=== PATIENT | female | born 1990 | race Caucasian/White ===

== ENCOUNTER 2017-01-29 08:44 | Emergency (ER) | payer MEDICAID, OTHER ==
[2017-01-29 08:55] VITALS: BMI 32.5
[2017-01-29 08:56] VITALS: TEMP 98.2; O2SAT 99
[2017-01-29] MEDS ORDERED: Albuterol-Ipratrop 3 mg / 0.5 (3 ml) UD ONE (09:41)
[2017-01-29] MEDS ORDERED: Albuterol-Ipratrop 3 mg / 0.5 (3 ml) UD IH SCH (09:45)
[2017-01-29 10:08] VITALS: BP 102/65; PULSE 105; RESP 18
--- NOTE | 2017-01-29 11:11 | C.PDOC ---
History Of Present Illness 26 yr old female who is 35 weeks with PMHx of asthma, presents to the ER stating last night she had 2 episodes of coughing and difficulty breathing. Patient states after the first episode she had a treatment of Albuterol and felt better but after the second episode she started having crampy abdominal pain and had some pink discharge. Patient denies fever, chest pain, nausea, vomiting, diarrhea, weakness or numbness. Time Seen by Provider: 01/29/17 09:12 Chief Complaint (Nursing): Cough, Cold, Congestion History Per: Patient History/Exam Limitations: no limitations Onset/Duration Of Symptoms: Sudden Onset (Last night) Past Medical History Reviewed: Historical Data, Nursing Documentation, Vital Signs Vital Signs: Last Vital Signs Temp 98.2 F 01/29/17 08:55 Pulse 105 H 01/29/17 10:00 Resp 18 01/29/17 10:00 BP 102/65 01/29/17 10:00 Pulse Ox 99 01/29/17 11:16 - Medical History PMH: Anemia, Asthma Family History: States: No Known Family Hx - Social History Hx Tobacco Use: No Hx Alcohol Use: No Hx Substance Use: No - Immunization History Hx Influenza Vaccination: Yes (2014) Hx Pneumococcal Vaccination: Yes Review Of Systems Except As Marked, All Systems Reviewed And Found Negative. Constitutional: Negative for: Fever Cardiovascular: Negative for: Chest Pain Gastrointestinal: Positive for: Abdominal Pain. Negative for: Nausea, Vomiting , Diarrhea Genitourinary: Positive for: Vaginal Discharge ([place]) Neurological: Negative for: Weakness, Numbness Physical Exam - Physical Exam Appears: Non-toxic, No Acute Distress Skin: Normal Color, Warm, Dry, No Rash Head: Atraumatic, Normacephalic Oral Mucosa: Moist Chest: Symmetrical, No Tenderness Cardiovascular: Rhythm Regular, No Murmur Respiratory: Normal Breath Sounds, No Rales, No Rhonchi, No Wheezing Gastrointestinal/Abdominal: Soft, No Tenderness, No Guarding, No Rebound Back: Other (gravid uterus palp at xyphoid) Extremity: Normal ROM, No Swelling Neurological/Psych: Oriented x3, Normal Speech, Normal Motor ED Course And Treatment O2 Sat by Pulse Oximetry: 99 Medical Decision Making Medical Decision Making: PLAN: Discussed with pt Alb nebs in the ED observation if breathing OK then tx to ob for evaluation Post neb tx pt eloped Disposition - Disposition Disposition: ELOPEMENT - ER ONLY Disposition Time: 00:00 Condition: UNKNOWN - Clinical Impression Clinical Impression: Asthma, - Scribe Statement The provider has reviewed the documentation as recorded by the Kerryibe Evangelina Davis Provider Attestation: All medical record entries made by the Kerryibsravani were at my direction and personally dictated by me. I have reviewed the chart and agree that the record accurately reflects my personal performance of the history, physical exam, medical decision making, and the department course for this patient. I have also personally directed, reviewed, and agree with the discharge instructions and disposition.
--- NOTE | 2017-02-10 12:22 | CARD ---
APPROVED REPORT EKG Measurement Heart [id number] IL [id number] [id number] <Conclusion> Sinus tachycardia Otherwise normal ECG
== END 2017-01-29 10:00 | disposition left against medical advice (07) ==
LOC: C.ER 08:44 → SUPCPDRO 08:44 → C.ER 10:00
DX: O26.893 Other specified pregnancy related conditions, third trimester (principal); J45.909 Unspecified asthma, uncomplicated; Z3A.35 35 weeks gestation of pregnancy

== ENCOUNTER 2017-02-23 07:09 | Inpatient (IN) | payer OTHER ==
[2017-03-04 05:01] VITALS: BMI 40.7
--- NOTE | 2017-03-04 06:58 | OBADHP ---
Datetime: 03/04/2017 06:52 Admit Comment, IP Provider: chief complaint-term , induction of labor HPI 26 y/o at 39.4 wga here for scheduled induction oif labor.patient denies nausea, vomiting , headachge, chest pain, shortness of breath, numbness or tingling in hands and feet course complicated by anemia; hx of lupus but not on meds PMH lupus.was on plaquanil until she found out she is , asthma, obesity PSH denies OBGYN HX ; NVDX1; Hx of ascus pap Social hx denies tobacco,alcohol or illicit drug use Exam see exam section A/P 26 y/o at 39.4 wg ahere for inbduction of labor due to lupus -admit -see orders Pelvic Type - PN: Adequate Extremities - PN: Normal Abdomen - PN: Normal Back - PN: Normal Lungs - PN: Normal Heart - PN: Normal Neurologic - PN: Normal General - PN: Normal Weight - Estimated: 3200 Presentation-Admit: Vertex Contraction Comments Provider: occ Gestation - Est Wks by US: 39.4 IP Hx Assessment: The History has been Reviewed and is Current Vital Signs Provider: Reviewed; Within Normal Limits IP Chief Complaint: Scheduled induction of labor FHR Category Provider Fetus A: Category I Dilatation, Provider: 1 Effacement, Provider: 70 Station, Provider: -2 Genitourinary Exam: Normal DTRs - PN: Normal EGA AdmitDate IP: 39.4 IP Adm Impression: Term, intrauterine ; No Active Labor IP Admit Plan: Admit to unit
[2017-03-04] MEDS ORDERED: Lactated Ringer's 1,000 ML IV SCH (07:30)
--- NOTE | 2017-03-04 07:39 | OBPN ---
Datetime: 03/04/2017 07:32 Contraction Comments Provider: irregular FHR - Baseline A Provider: 130 Gestation - Est Wks by US: 39.0 Weight - Estimated: 3200 Presentation-Admit: Vertex IP Progress Note Comment: Elsin received in LDR#2 - (+) abdominal "cramps" pain scale 3/10 to 4/10 ; also c/o low back pain. (+) AFM. V.E: as above. Assessment: 26 yo P1011, 39 weeks, referred for IOL for lupus; severe anemia. Cervical exam as abo ve. Category 1 tracing. Discussed with patient cervical ripening followed by pitocin. Patient also co unseled re: pain management; receptive to epidural. GBS (-). Clinically stable. Plan: 1) Cytotec p.o. x 1 2) Possible pitocin 3) Possible epidural 4) Anticipate vaginal delivery NICHD Accel Fetus A IP Provider: 15X15 FHR Category Provider Fetus A: Category I NICHD Variability Prov Fetus A: Moderate 6-25bpm Dilatation, Provider: 3 Effacement, Provider: 50 Station, Provider: -3 NICHD Decel Fetus A IP Provider: None Datetime: 03/04/2017 06:52 Vital Signs Provider: Reviewed; Within Normal Limits
[2017-03-04 08:53] LABS: BASO % 0.4 % (0.0-2.0); EOS # 0.1 K/uL (0.0-0.7); EOS % 1.2 % (0.0-4.0); HEMATOCRIT 25.2 % (34.0-47.0); LYMPH # 1.6 K/uL (1.0-4.3); LYMPH % 19.5 % (20.0-40.0); MEAN CELL VOLUME 62.2 fL (81.0-99.0); MEAN CORPUSCULAR HEMOGLOBIN 17.8 pg (27.0-31.0); MEAN CORPUSCULAR HGB CONC 28.7 g/dL (33.0-37.0); MEAN PLATELET VOLUME 8.9 fL (7.2-11.7); MONO # 0.6 K/uL (0.0-0.8); MONO % 7.1 % (0.0-10.0); RED CELL DISTRIBUTION WIDTH 21.1 % (11.5-14.5); WHITE BLOOD COUNT 8.3 K/uL (4.8-10.8)
[2017-03-04 09:02] LABS: CHLORIDE 106 mmol/L (98-107)
[2017-03-04 09:03] LABS: POTASSIUM 3.9 mmol/L (3.6-5.2); SODIUM 137 mmol/L (132-148)
[2017-03-04 09:05] LABS: ALKALINE PHOSPHATASE 170 U/L (38-126); AST/SGOT 53 U/L (14-36); BILIRUBIN,TOTAL 0.9 mg/dL (0.2-1.3); BLOOD UREA NITROGEN 7 mg/dL (7-17); CARBON DIOXIDE 19 mmol/L (22-30); GFR AFRICAN-AMERICAN > 60; TOTAL PROTEIN 6.4 g/dL (6.3-8.3)
[2017-03-04 09:06] LABS: ALT/SGPT 10 U/L (9-52); CALCIUM 8.3 mg/dl (8.6-10.4); GLUCOSE,RANDOM 74 mg/dL (65-105)
[2017-03-04] MEDS ORDERED: Oxytocin 30 UNIT 30 UNITS/500 ML BAG IV PRN (12:31)
[2017-03-04 12:34] LABS: RBC URINE 1 /hpf (0-3); URINE BACTERIA RARE (<OCC); URINE BILIRUBIN NEGATIVE (NEGATIVE); URINE BLOOD NEGATIVE (NEGATIVE); URINE COLOR Yellow (YELLOW); URINE GLUCOSE (UA) NORMAL (Normal); URINE KETONE TRACE mg/dL (NEGATIVE); URINE LEUKOCYTE ESTERASE NEG Leu/uL (Negative); URINE PROTEIN NEGATIVE (NEGATIVE); WBC URINE 2 /hpf (0-5)
[2017-03-04] MEDS ORDERED: Oxytocin 20 units in LR 0 ML IV ONE (12:36)
[2017-03-04] MEDS ORDERED: Oxytocin 30 UNIT 30 UNITS/500 ML BAG IV ONE (12:43)
[2017-03-04] MEDS ORDERED: Bupivacaine 0.125%/FentaNYL 200 ML EPI ONE (13:51)
--- NOTE | 2017-03-04 18:43 | OBPN ---
Datetime: 03/04/2017 18:16 IP Progress Impression: Normal progression of labor IP Progress Plan: Continue present management; Anticipate Vaginal Delivery Contraction Comments Provider: 2-4 FHR - Baseline A Provider: 115 Gestation - Est Wks by US: 39.0 Weight - Estimated: 3200 Presentation-Admit: Vertex IP Progress Note Comment: Patient c/o increasing vaginal pressure V.E.: as above. Pitocin at 6 mU/min Assessment: p1, 39w, pitocin augmentation; h/o lupus and anemia. Category [address] able. Plan: 1) Epidural top off 2) Anticipate vaginal delivery NICHD Accel Fetus A IP Provider: 15X15 FHR Category Provider Fetus A: Category I NIC[facility] Variability Prov Fetus A: Moderate 6-25bpm Dilatation, Provider: 7 Effacement, Provider: 90 Station, Provider: 0 NICHD Decel Fetus A IP Provider: None Datetime: 03/04/2017 12:34 Membranes, Provider: Intact
[2017-03-04] MEDS ORDERED: Oxytocin 30 UNIT 30 UNITS/500 ML BAG IV SCH (21:00)
[2017-03-04] MEDS ORDERED: Lidocaine 2% Inj (20ml) ONE (21:03)
[2017-03-04] MEDS ORDERED: Oxycodone/Acetaminophen 5/325 mg Tab PO PRN ×2 (21:53)
--- NOTE | 2017-03-04 22:16 | OBDS ---
DELIVERY PERSONNEL Delivery Doctor: Marvin Short MD Scrub Nurse: Brunilda Negrete Cordwood Cutter: Tayo Leon RN Anesthesiologist: JAMEL MATERNAL INFORMATION Delivery Anesthesia: Local; Epidural Medications in Delivery: none Estimated Blood Loss (ml): 500cc Placenta Cultured: No Maternal Complications: None RN Comments: Pt was admitted for induction pt received 1 dose of cytotec then pitocin. pt also had e pidural and giordano catheter.pt progress to 10cms and delivered live baby boy. is 9/9.Pt has hx o f lupus and Hgb 7.2 anemic Provider Comments: Uncomplicated vaginal delivery of live male , CARRIE position, Apgars 9/9, brianna ght 8lb 4oz, over intact perineum. Infant's mouth and nose bulb-suctioned upon delivery of body. Umbi lical cord doubly clamped and cut; placed on mother's abodmen. Spontaneous delivery of placenta: grossly intact; 3 vessel cord Inspection of cervix, vagina and perineum - laceration as above. Repair as above. Infant and mothe r bonding; both in stable condition. LABOR SUMMARY EDC: 03/07/2017 00:00 No. Babies in Womb: 1 Attempted: No Labor Anesthesia: Epidural LABOR INFORMATION Reason for Induction: Other Reason for Induction Other: lupus Onset of Labor: 03/03/2017 20:00 Complete Dilatation: 03/04/2017 19:42 Cervical Ripening Agents: Cytotec @ (Annotations: 50 mcg PO) Oxytocin: Augmentation Group B Beta Strep: Negative (Annotations: 02/11/2017) Antibiotics # of Doses: 0 Antibiotics Time of Last Dose: 0 Steroids Given: None Reason Steroids Not Administered: Not Applicable Other Reason Not Administered: term baby MEMBRANES Membranes Rupture Method: Artificial Rupture of Membranes: 03/04/2017 15:51 Length of Rupture (hrs): 4.78 Amniotic Fluid Color: Clear Amniotic Fluid Amount: Large Amniotic Fluid Odor: Normal STAGES OF LABOR Stage 1 hrs: 23 Stage 1 min: 42 Stage 2 hrs: 0 Stage 2 min: 56 Stage 3 hrs: 0 Stage 3 min: 19 Total Time in Labor hrs: 24 Total Time in Labor min: 57 VAGINAL DELIVERY Episiotomy: None Laceration Extension: Second Degree Laceration Type: Perineal Laceration Repair: 2 0 chromic Laceration Repair Note: 2-0 chromic, running interlocking Hemostasis assured. Patient tolerated procedure well Initial Vag Sponge Count: 10 Final Vag Sponge Count: 10 Initial Vag Sharps Count: 1 Final Vag Sharps Count: 1 Sponge Count Correct: Yes; Vaginal Sweep Performed Sharps Count Correct: Yes Count Comment: all laps and instruments accounted for. BABY A INFORMATION Delivery Date/Time: 03/04/2017 20:38 Method of Delivery: Vaginal Born in Route : No : N/A Forceps: N/A Vacuum Extraction: N/A Shoulder Dystocia : No SHOULDER DYSTOCIA BABY A Infant Delivery Date/Time: 03/04/2017 20:38 PRESENTATION/POSITION BABY A Presentation: Cephalic Cephalic Presentation: Vertex Vertex Position: Right Occipital Anterior Breech Presentation: N/A PLACENTA INFORMATION BABY A Placenta Delivery Time : 03/04/2017 20:57 Placenta Method of Delivery: Spontaneous Placenta Status: Delivered SCORES BABY A Heart Rate 1 min: >100 bpm Resp Effort 1 min: Good Cry Reflex Irritability 1 min: Cough or Sneeze or Pulls Away Muscle Tone 1 min: Active Motion Color 1 min: Body [place], Extremities Blue Resuscitation Effort 1 min: Tactile Stimulation SCORE 1 MIN: 9 Heart Rate 5 min: >100 bpm Resp Effort 5 min: Good Cry Reflex Irritability 5 min: Cough or Sneeze or Pulls Away Muscle Tone 5 min: Active Motion Color 5 min: Body [place], Extremities Blue Resuscitation Effort 5 min: Tactile Stimulation SCORE 5 MIN: 9 INFANT INFORMATION BABY A Gestational Age at Delivery: 39.0 Gestational Status: Term Outcome : Liveborn Condition : Stable Sex: Male IDENTIFICATION/MEDS BABY A ID Band Number: [id number] ID Band Location: Left Leg; Left Arm Sensor Applied: Yes Sensor Number: [id number] Sensor Location : Cord Clamp Vitamin K Given : Left Thigh Erythromycin Given: Given Both Eyes WEIGHT/LENGTH BABY A Infant Birthweight (gms): 3750 Infant Weight (lb): 8 Weight (oz): 4 Length Inches: 20.00 Length cms: 50.8 CORD INFORMATION BABY A No. Cord Vessels: 3 Nuchal Cord : N/A Nuchal Cord Other: NONE Cord Blood Taken: Yes Suction: Mouth; Nose ASSESSMENT BABY A Complications: Multiple Variable Decels Physical Findings at Delivery: Within Normal Limits Infant Respirations: Appears Normal Ethyl Blender/ALS Called : Yes Care By: KIM TOLENTINO /DR FOSTER Transferred To: Remains with Mother
[2017-03-04] MEDS ORDERED: Oxycodone/Acetaminophen 5/325 mg Tab ONE (22:18)
[2017-03-05] MEDS ORDERED: Benzocaine/Menthol 20%-0.5% Topical Spray (60 ml) TOP SCH
[2017-03-05 08:59] LABS: HEMATOCRIT 24.2 % (34.0-47.0); MEAN CELL VOLUME 61.8 fL (81.0-99.0); MEAN CORPUSCULAR HEMOGLOBIN 17.7 pg (27.0-31.0); MEAN CORPUSCULAR HGB CONC 28.6 g/dL (33.0-37.0); MEAN PLATELET VOLUME 8.6 fL (7.2-11.7); RED CELL DISTRIBUTION WIDTH 21.2 % (11.5-14.5)
[2017-03-05] MEDS: Multiple Vitamins Tab PO SCH (09:02)
[2017-03-05 09:03] LABS: WHITE BLOOD COUNT 17.6 K/uL (4.8-10.8)
--- NOTE | 2017-03-05 09:26 | OBPPN ---
Datetime: 03/05/2017 09:22 PP Pain Prov: Within normal limits PP Nausea Prov: Denies PP Flatus Prov: Yes PP BM Prov: Yes PP Breasts Prov: Normal PP Heart Prov: Normal PP Lungs Prov: Normal PP Abdomen/Uterus Prov: Normal PP Lochia Prov: Normal PP Vulva/Perineum Prov: Normal PP CVA Tenderness Prov: Normal PP Extremities Prov: Normal PP C/S Incision Prov: Not Applicable PP Progress Prov: Normal PP Comments Phys Exam Prov: Abdomen soft. uterus firm and contracted. PP Impression Prov: Normal progression PP Plan Prov: Continue present management PP Progress Note Prov: Chronic anemia on Fe PO. Anticipate discharge tomorrow. IP PP Procedures: None Vital Signs Provider PP: Reviewed; Within Normal Limits Vital Signs Provider Details PP: HgB 6.9g/dl
[2017-03-06 08:11] VITALS: BP 114/60; PULSE 76; RESP 18; TEMP 97; O2SAT 99
--- NOTE | 2017-03-06 09:14 | OBPPN ---
Datetime: 03/06/2017 09:06 PP Pain Prov: Within normal limits PP Nausea Prov: Denies PP Flatus Prov: Yes PP BM Prov: No PP Heart Prov: Normal PP Lungs Prov: Normal PP Abdomen/Uterus Prov: Normal PP Lochia Prov: Normal PP Vulva/Perineum Prov: Normal PP CVA Tenderness Prov: Normal PP Extremities Prov: Normal PP Impression Prov: Normal progression PP Progress Note Prov: S-patient denies any complaints.Tolerating regulqr diet.Ambulating and voidin g without difficulty.Passing flatus.Denies chest pain,s hortenss of breath, dyspnea, joint pain, rash O-VSS Afebrile fundus firm and below umbilicus Extremities no calf tenderness Hemoglobin 6.9g/dl on 03/05/2017 A/P Patient s/p vaginal delivery PPD 2 doing well.patient with anemia on admission.states that she her hemoglobin ranges between 7-9 g/dl due to lupus.Denies any other compalints. -repeat cbc ordered.patient refusing blood transfusion as she does not feel any symptoms.Follow up cbc results.Discharge pending on the results Vital Signs Provider PP: Reviewed; Within Normal Limits
[2017-03-06] MEDS: Multiple Vitamins Tab PO SCH (10:48)
[2017-03-06 11:27] LABS: BASO % 0.2 % (0.0-2.0); EOS # 0.1 K/uL (0.0-0.7); EOS % 1.2 % (0.0-4.0); HEMATOCRIT 24.3 % (34.0-47.0); LYMPH # 1.9 K/uL (1.0-4.3); LYMPH % 18.5 % (20.0-40.0); MEAN CELL VOLUME 62.6 fL (81.0-99.0); MEAN CORPUSCULAR HEMOGLOBIN 18.1 pg (27.0-31.0); MEAN CORPUSCULAR HGB CONC 28.8 g/dL (33.0-37.0); MEAN PLATELET VOLUME 8.6 fL (7.2-11.7); MONO # 0.7 K/uL (0.0-0.8); MONO % 6.4 % (0.0-10.0); RED CELL DISTRIBUTION WIDTH 20.7 % (11.5-14.5); WHITE BLOOD COUNT 10.4 K/uL (4.8-10.8)
== END 2017-03-06 15:10 | disposition home or self-care (01) | DRG 373 ==
LOC: C.4D 03-04 06:52 → C.4M 03-04 22:45
PROVIDERS: ADMIT Obstetrics & Gynecology; ATTEND Obstetrics & Gynecology
PROC: 10E0XZZ Delivery of Products of Conception, External Approach (ICD-10-PCS; principal; 2017-03-04)
PROC: 0KQM0ZZ Repair Perineum Muscle, Open Approach (ICD-10-PCS; 2017-03-04)
PROC: 10907ZC Drainage of Amniotic Fluid, Therapeutic from Products of Conception, Via Natural or Artificial Opening (ICD-10-PCS; 2017-03-04)
DX: O99.02 Anemia complicating childbirth (principal); M32.9 Systemic lupus erythematosus, unspecified; Z37.0 Single live birth; O99.89 Other specified diseases and conditions complicating pregnancy, childbirth and the puerperium; O70.1 Second degree perineal laceration during delivery; D64.9 Anemia, unspecified; Z3A.39 39 weeks gestation of pregnancy

== ENCOUNTER 2017-06-19 02:14 | Emergency (ER) | payer MEDICAID, OTHER ==
[2017-06-19 02:14] VITALS: BMI 40.7
[2017-06-19 02:29] VITALS: TEMP 98.2
[2017-06-19] MEDS ORDERED: Sodium Chloride 0.9% 1,000 ML IV ONE (03:01)
--- NOTE | 2017-06-19 03:02 | C.PDOC ---
History Of Present Illness 27 yo female w/PMHx of anemia, vegan, 3 months post-, come in for evaluation of epigastric pain, intermittent for past few months. Pt sts, pain is sharp at time, epigastric, localized, non-radiating, self-limited, not changed with food intake. Pt sts, was seen by PMD and dx with gastritis and was given Omeprazole without improvement in sx. Pt sts, today also had few episodes of sharp epigastric pain. At present time, pt admits is asymptomatic. Otherwise , pt denies fever, chills, headache, dizziness, weakness, CP, SOB, dyspnea, diaphoresis, palpitation, V/D, melena, hematoschezia, back pain, UTI sx. Ambulate to Ed for evaluation, not in nay apparent distress. Time Seen by Provider: 06/19/17 02:50 Chief Complaint (Nursing): Abdominal Pain History Per: Patient Onset/Duration Of Symptoms: Intermittent Episodes Past Medical History Reviewed: Historical Data, Nursing Documentation, Vital Signs Vital Signs: Last Vital Signs Temp 98.2 F 06/19/17 02:25 Pulse 86 06/19/17 05:16 Resp 18 06/19/17 05:16 BP 112/68 06/19/17 05:16 Pulse Ox 100 06/19/17 06:14 - Medical History PMH: Anemia, Asthma, Gastritis Denies: Chronic Kidney Disease Surgical History: No Surg Hx - [facility] Procedures DELIVERY OF PRODUCTS OF CONCEPTION, EXTERNAL APPROACH (03/04/17) DRAINAGE OF AMNIOTIC FL, THERAP FROM POC, VIA OPENING (03/04/17) REPAIR PERINEUM MUSCLE, OPEN APPROACH (03/04/17) Family History: States: No Known Family Hx - Social History Hx Tobacco Use: No Hx Alcohol Use: No Hx Substance Use: No - Immunization History Hx Tetanus Toxoid Vaccination: No Hx Influenza Vaccination: Yes (2014) Hx Pneumococcal Vaccination: Yes Review Of Systems Except As Marked, All Systems Reviewed And Found Negative. Constitutional: Negative for: Fever, Chills, Weakness, Malaise Eyes: Negative for: Vision Change ENT: Negative for: Throat Pain Cardiovascular: Negative for: Chest Pain, Palpitations, Edema, Light Headedness Respiratory: Negative for: Cough, Shortness of Breath, SOB with Excertion, Wheezing Gastrointestinal: Positive for: Abdominal Pain. Negative for: Nausea, Vomiting , Diarrhea, Melena, Hematochezia Genitourinary: Negative for: Dysuria, Frequency, Incontinence Musculoskeletal: Negative for: Neck Pain, Back Pain Skin: Negative for: Rash Neurological: Negative for: Weakness, Numbness, Altered Mental Status, Headache , Dizziness Physical Exam - Physical Exam Appears: Well, Non-toxic, No Acute Distress Skin: Normal Color, Warm, Dry, No Rash Eye(s): bilateral: PERRL Nose: No Flaring Oral Mucosa: Moist Throat: No Erythema, No Exudate Neck: Supple Cardiovascular: Rhythm Regular Respiratory: No Decreased Breath Sounds, No Accessory Muscle Use, No Rales, No Stridor, No Wheezing Gastrointestinal/Abdominal: Soft, Tenderness (epigastric, moderate), No Organomegaly, No Distention, No Guarding Back: No CVA Tenderness Extremity: No Pedal Edema, No Deformity Neurological/Psych: Oriented x3, Normal Speech ED Course And Treatment - Laboratory Results Result Diagrams: 06/19/17 03:05 06/19/17 03:05 O2 Sat by Pulse Oximetry: 100 ED OBSERVATION Discharge: Yes Date of observation admission: 06/19/17 Time of observation admission: 02:50 - Observation admission statement Patient is being placed in observation because:: Abdominal pain - Goals of Observation Goals of observation are:: Diagnostics, imaging, sx tx, re-eval. - Progress Note Progress Note: 06/19/17 At 3:55, pt resting comfortably, not in any apparent distress. Afebrile, hemodynamicaly stable. NOn-toxic. Abd: benign, (-) guarding, (-) rebound. Blood work review. LFT abnormal. Pt has PMHx of anemia thai appears at baseline. Imaging order. At 6:11, On re-evaluation, pt is afebrile, hemodynamicaly stable. Non-toxic. Ambulatory in ED with stable gait. Tolerate Po well in ED Asymptomatic. ENT: no acute findings Lungs: CTA B/L, BS equal B/L. Abd: benign, (-) guarding, (-) rebound, (-) localized tenderness. Back: (-) CVA Tenderness Imaging review and c/w pyelonephritis. Abx given. results review and discussed with pt. Pt advised on course of ds. ref. to F/u with PMD, GI in 2-3 days for re-eval. return to ED if any worsening or new changes. Disposition Counseled Patient/Family Regarding: Diagnosis, Need For Followup, Rx Given - Disposition Referrals: Ryan Simpson MD [Medical Doctor] - Anthony Echavarria MD [Staff Provider] - Disposition: HOME/ ROUTINE Disposition Time: 06:14 Condition: STABLE Additional Instructions: ENCOURAGE FLUIDS CRANBERRY SUPPLEMENT / OR JUICE TAKE MEDICATION PRESCRIBED STOP OMEPRAZOLE NOW FOLLOW UP WITH PMD, GI IN 2-3 DAYS FOR RE-EVALUATION. RETURN TO ED IF ANY WORSENING OR NEW CHANGES. Prescriptions: Nitrofurantoin Macrocrystals [Macrobid] 1 cap PO BID #14 cap Pantoprazole Sodium [Protonix] 40 mg PO DAILY #14 tablet. Instructions: Acute Pyelonephritis (ED), Epigastric Pain (ED) Forms: [facility] (Bhutanese) - Clinical Impression Clinical Impression: Pyelonephritis, Epigastric abdominal pain
[2017-06-19] MEDS ORDERED: Sodium Chloride 0.9% 1,000 ML ONE (03:05)
[2017-06-19 03:15] LABS: BASO % 0.3 % (0.0-2.0); EOS # 0.2 K/uL (0.0-0.7); HEMATOCRIT 29.6 % (34.0-47.0); LYMPH # 1.7 K/uL (1.0-4.3); LYMPH % 27.9 % (20.0-40.0); MEAN CELL VOLUME 60.1 fL (81.0-99.0); MEAN CORPUSCULAR HEMOGLOBIN 17.3 pg (27.0-31.0); MEAN CORPUSCULAR HGB CONC 28.8 g/dL (33.0-37.0); MEAN PLATELET VOLUME 8.8 fL (7.2-11.7); MONO # 0.6 K/uL (0.0-0.8); MONO % 10.2 % (0.0-10.0); RED CELL DISTRIBUTION WIDTH 18.2 % (11.5-14.5); WHITE BLOOD COUNT 6.1 K/uL (4.8-10.8)
[2017-06-19 03:27] LABS: CHLORIDE 102 mmol/L (98-107); POTASSIUM 4.7 mmol/L (3.6-5.2); SODIUM 137 mmol/L (132-148)
[2017-06-19 03:29] LABS: GFR AFRICAN-AMERICAN > 60
[2017-06-19 03:30] LABS: ALKALINE PHOSPHATASE 241 U/L (38-126); ALT/SGPT 88 U/L (9-52); AST/SGOT 128 U/L (14-36); BILIRUBIN,TOTAL 0.5 mg/dL (0.2-1.3); BLOOD UREA NITROGEN 9 mg/dL (7-17); CALCIUM 8.6 mg/dl (8.6-10.4); CARBON DIOXIDE 22 mmol/L (22-30); GLUCOSE,RANDOM 100 mg/dL (65-105); TOTAL PROTEIN 7.4 g/dL (6.3-8.3)
[2017-06-19 04:13] LABS: RBC URINE 41 /hpf (0-3); URINE BILIRUBIN NEGATIVE (NEGATIVE); URINE BLOOD 3+ (NEGATIVE); URINE COLOR Yellow (YELLOW); URINE GLUCOSE (UA) NORMAL (Normal); URINE KETONE NEGATIVE (NEGATIVE); URINE LEUKOCYTE ESTERASE NEG Leu/uL (Negative); URINE PROTEIN NEGATIVE (NEGATIVE); URINE UROBILINOGEN NORMAL mg/dL (0.2-1.0); WBC URINE 4 /hpf (0-5)
[2017-06-19] MEDS ORDERED: Iodixanol 320 MG/ML 100 ML BOTTLE IV ONE (04:51)
--- NOTE | 2017-06-19 06:00 | CT ---
EXAM: CT Abdomen and Pelvis With Intravenous Contrast EXAM DATE/TIME: 06/19/2017 4:23 AM CLINICAL HISTORY: 27 years old, female; Pain; Abdominal pain; Additional info: Rlq pain TECHNIQUE: Axial computed tomography images of the abdomen and pelvis with intravenous contrast. All CT scans at this facility use one or more dose reduction techniques, viz.: automated exposure control; ma/kV adjustment per patient size (including targeted exams where dose is matched to indication; i.e. head); or iterative reconstruction technique. Coronal and sagittal reformatted images were created and reviewed. CONTRAST: 100 mL of [id number] administered intravenously. COMPARISON: No relevant prior studies available. FINDINGS: LOWER THORAX: No infiltrate seen in the lung bases. ABDOMEN: LIVER: No acute abnormality of the liver identified. GALLBLADDER AND BILE DUCTS: No CT evidence of acute cholecystitis. No evidence of significant biliary ductal dilatation. PANCREAS: No CT evidence of acute pancreatitis. SPLEEN: No acute abnormality of the spleen identified. ADRENALS: No acute abnormality of the adrenal glands identified. KIDNEYS AND URETERS: Best seen on images 59 and 108 of series 602, there are scattered, small, subtle areas of low density in the bilaterally, which have linear/wedge shaped and configurations, and do not appear to represent cysts. In an acute setting, the findings could be secondary to multifocal small areas of pyelonephritis bilaterally. Low density lesion in the left kidney upper pole, measuring 11 mm, most likely a cyst. No evidence of hydroureteronephrosis. STOMACH AND BOWEL: No acute abnormality of the stomach, small bowel or colon identified. No evidence of bowel obstruction. APPENDIX: Appendix is seen, and is within normal limits in appearance. PELVIS: BLADDER: No acute abnormality of the bladder identified. REPRODUCTIVE: No acute abnormality of the uterus identified. No evidence of large adnexal masses. ABDOMEN and PELVIS: INTRAPERITONEAL SPACE: No evidence of free intraperitoneal air or fluid. BONES/JOINTS: Mild sclerosis seen abutting the left sacroiliac joint. This could be due to degenerative changes versus mild sacroiliitis. Recommend clinical correlation. SOFT TISSUES: No acute abnormality of the visualized soft tissues is seen. VASCULATURE: No evidence of abdominal aortic aneurysm. No evidence of periaortic hemorrhage. LYMPH NODES: Multiple small mesenteric lymph nodes seen, none appearing pathologically enlarged. This is a nonspecific finding. No evidence of diffuse pathologic lymphadenopathy. IMPRESSION: - Renal findings which could represent multifocal, scattered, small areas of pyelonephritis bilaterally. Recommend clinical correlation. - See above for remaining findings.
[2017-06-19 06:29] VITALS: BP 121/65; PULSE 80; RESP 20; O2SAT 99
== END 2017-06-19 06:29 | disposition home or self-care (01) ==
LOC: C.ER 02:14
DX: N12 Tubulo-interstitial nephritis, not specified as acute or chronic (principal)
CPT/HCPCS: 74177; 80053; 81001; 83690; 84703; 85025; 96361; 96374; 96375; 99285; C9113; J2405; J2765; J7040; Q9967

== ENCOUNTER 2017-07-26 23:51 | Emergency (ER) | payer MEDICAID, OTHER ==
[2017-07-26 23:51] VITALS: BMI 40.7
[2017-07-26 23:56] VITALS: RESP 20; O2SAT 98
[2017-07-27] MEDS ORDERED: Sodium Chloride 0.9% 1,000 ML ONE (00:57)
[2017-07-27 01:01] LABS: BASO # 0.1 K/uL (0.0-0.2); BASO % 0.6 % (0.0-2.0); EOS % 0.1 % (0.0-4.0); HEMATOCRIT 30.9 % (34.0-47.0); LYMPH # 1.2 K/uL (1.0-4.3); LYMPH % 11.2 % (20.0-40.0); MEAN CELL VOLUME 58.4 fL (81.0-99.0); MEAN CORPUSCULAR HEMOGLOBIN 17.5 pg (27.0-31.0); MEAN CORPUSCULAR HGB CONC 29.9 g/dL (33.0-37.0); MEAN PLATELET VOLUME 8.8 fL (7.2-11.7); MONO # 0.5 K/uL (0.0-0.8); MONO % 4.7 % (0.0-10.0); RED CELL DISTRIBUTION WIDTH 18.5 % (11.5-14.5); WHITE BLOOD COUNT 10.3 K/uL (4.8-10.8)
[2017-07-27] MEDS ORDERED: Sodium Chloride 0.9% 1,000 ML IV ONE (01:10)
[2017-07-27] MEDS ORDERED: Alum-Mag Hydrox-Simethicone Susp (30 mL) PO STA ×2 (01:13→03:08)
[2017-07-27 01:14] LABS: ALB/GLOB RATIO 1.2 (1.0-2.1); ALKALINE PHOSPHATASE 165 U/L (38-126); ALT/SGPT 47 U/L (9-52); AST/SGOT 57 U/L (14-36); BILIRUBIN,TOTAL 0.7 mg/dL (0.2-1.3); BLOOD UREA NITROGEN 13 mg/dL (7-17); CALCIUM 9.4 mg/dl (8.6-10.4); CARBON DIOXIDE 19 mmol/L (22-30); CHLORIDE 103 mmol/L (98-107); GFR AFRICAN-AMERICAN > 60; GLUCOSE,RANDOM 109 mg/dL (65-105); POTASSIUM 4.3 mmol/L (3.6-5.2); SODIUM 138 mmol/L (132-148); TOTAL PROTEIN 8.3 g/dL (6.3-8.3)
[2017-07-27] MEDS ORDERED: Alum-Mag Hydrox-Simethicone Susp (30 mL) ONE ×2 (01:23→03:14)
[2017-07-27 02:34] LABS: RBC URINE 1 /hpf (0-3); URINE BILIRUBIN NEGATIVE (NEGATIVE); URINE BLOOD NEGATIVE (NEGATIVE); URINE COLOR Yellow (YELLOW); URINE GLUCOSE (UA) NORMAL (Normal); URINE KETONE NEGATIVE (NEGATIVE); URINE LEUKOCYTE ESTERASE NEG Leu/uL (Negative); URINE PROTEIN NEGATIVE (NEGATIVE); URINE UROBILINOGEN NORMAL mg/dL (0.2-1.0); WBC URINE 1 /hpf (0-5)
--- NOTE | 2017-07-27 03:08 | C.PDOC ---
History Of Present Illness 27 year old female who presents to the ER with a complaint of cramping epigastric pain with no bowel movement in the last 2 days. Patient took a laxative this morning with no bowel movement today; patient reports Hx of constipation, colic pain, and peptic ulcer disease. Denies nausea or vomiting. Time Seen by Provider: 07/27/17 01:12 Chief Complaint (Nursing): Abdominal Pain History Per: Patient History/Exam Limitations: no limitations Onset/Duration Of Symptoms: Days Current Symptoms Are (Timing): Still Present Location Of Pain/Discomfort: Epigastric Radiation Of Pain To:: None Quality Of Discomfort: Cramping Associated Symptoms: denies: Fever, Chills, Nausea, Vomiting Exacerbating Factors: None Alleviating Factors: None Recent travel outside of the [place]: No Abnormal Vaginal Bleeding: No Past Medical History Reviewed: Historical Data, Nursing Documentation, Vital Signs Vital Signs: Last Vital Signs Temp 97.9 F 07/27/17 03:19 Pulse 81 07/27/17 03:19 Resp 20 07/27/17 03:19 BP 128/72 07/27/17 03:19 Pulse Ox 98 07/27/17 03:19 - Medical History PMH: Anemia, Asthma, Gastritis - [facility] Procedures DELIVERY OF PRODUCTS OF CONCEPTION, EXTERNAL APPROACH (03/04/17) DRAINAGE OF AMNIOTIC FL, THERAP FROM POC, VIA OPENING (03/04/17) REPAIR PERINEUM MUSCLE, OPEN APPROACH (03/04/17) Family History: States: Unknown Family Hx - Social History Hx Tobacco Use: No Hx Alcohol Use: No Hx Substance Use: No - Immunization History Hx Tetanus Toxoid Vaccination: No Hx Influenza Vaccination: Yes Hx Pneumococcal Vaccination: No Review Of Systems Constitutional: Negative for: Fever, Chills Gastrointestinal: Positive for: Abdominal Pain, Constipation. Negative for: Nausea, Vomiting Physical Exam - Physical Exam Appears: Non-toxic, Other (Obese) Skin: Normal Color, Warm, Dry Head: Atraumatic, Normacephalic Oral Mucosa: Moist Chest: Symmetrical, No Tenderness Cardiovascular: Rhythm Regular, No Murmur Respiratory: Normal Breath Sounds, No Rales, No Rhonchi, No Wheezing Gastrointestinal/Abdominal: Soft, Tenderness (Mild epigastric), No Guarding, No Rebound Neurological/Psych: Oriented x3, Normal Speech, Normal Cognition ED Course And Treatment - Laboratory Results Result Diagrams: 07/27/17 00:59 09/25/17 00:59 Lab Interpretation: Normal (UA neg, microcytic anemia improved from 8.5 last month) Urine POC: Negative O2 Sat by Pulse Oximetry: 98 (Room air) Pulse Ox Interpretation: Normal - Radiology CXR: Interpreted by Me CXR Interpretation: Yes: No Acute Disease - Other Rad abd x 2 X-Ray: Interpreted by Me (+ increased stool and gas) Progress Note: pepcid, maalox Reevaluation Time: 03:10 Reassessment Condition: Improved Medical Decision Making Medical Decision Making: gastritis vs constipation/gas/bloating. ppi, maalox, walking educated. Disposition Doctor Will See Patient In The: Office Counseled Patient/Family Regarding: Studies Performed, Diagnosis - Disposition Referrals: Ryan Simpson MD [Medical Doctor] - Disposition: HOME/ ROUTINE Disposition Time: 03:11 Condition: GOOD Additional Instructions: continue pepcid 20 mg @ night to lower stomach acid Maalox 30 cc (one tablespoon) 4-5x/day for 5 days, then as needed Laxative for constipation Power walk 1 hour 5 days/week increases gastric motility to help with digestion/constipation Iron Def Anemia: Hgb 9.3 improved from 8.5 Great job! Continue Iron supplements. Instructions: Gastritis (ED), Constipation (ED) Forms: [facility] (Angolan) - Clinical Impression Clinical Impression: Abdominal pain - Scribe Statement The provider has reviewed the documentation as recorded by the Scribe Greg Thomas All medical record entries made by the Scribe were at my direction and personally dictated by me. I have reviewed the chart and agree that the record accurately reflects my personal performance of the history, physical exam, medical decision making, and the department course for this patient. I have also personally directed, reviewed, and agree with the discharge instructions and disposition.
[2017-07-27 03:20] VITALS: BP 128/72; PULSE 81; TEMP 97.9
--- NOTE | 2017-07-27 11:18 | RAD ---
Abdomen four views History: Abdominal pain. Comparison: None available. Findings: Mild venous congestion. Heart size within normal limits. Mild fecal retention in the colon. Few mildly distended loops of small bowel seen within the mid and left priyanka abdomen. Impression: Mild fecal retention in the colon. Few mildly distended loops of small bowel in the mid and left priyanka abdomen.
== END 2017-07-27 03:30 | disposition home or self-care (01) ==
LOC: C.ER 23:51
DX: R10.13 Epigastric pain (principal)
CPT/HCPCS: 74022; 80053; 81001; 83690; 84703; 85025; 96361; 96374; 96375; 99284; J2405; J7040